=== PATIENT | male | born 1960 | race Caucasian/White ===

== ENCOUNTER 2020-09-10 17:09 | Emergency (ER) | payer OTHER ==
[~2020-09-10] VITALS: Ht 172.7 cm; Wt 68.2 kg
[2020-09-10 17:21] VITALS: TEMP 97.7
[2020-09-10 18:14] LABS: ARTERIAL BLD GAS O2 SATURATION 92.2 % (92-100); ARTERIAL BLD GAS TCO2 CT 25.5; ARTERIAL BLOOD GAS BASE EXCESS 0.6 (-2-2); ARTERIAL BLOOD GAS HCO3 24.4 meq/L (22-26); ARTERIAL BLOOD GAS PCO2 36.7 mmHg (35-45); ARTERIAL BLOOD GAS pH 7.44 (7.35-7.45)
[2020-09-10 18:34] LABS: HEMATOCRIT 42.8 % (42.0-52.0); HEMOGLOBIN 13.7 g/dl (13.5-18.0); MEAN CELL VOLUME 99 fl (80.0-100.0); MEAN CORPUSCULAR HEMOGLOBIN 32 pg (27.0-31.0); MEAN CORPUSCULAR HGB CONC 32 g/dl (33.0-37.0); MEAN PLATELET VOLUME 10.9 fl (7.4-10.4); PLATELET COUNT 203 K/mm3 (130-400); RED BLOOD COUNT 4.31 M/mm3 (4.20-5.60)
[2020-09-10 18:57] LABS: ALANINE AMINOTRANSFERASE 82 U/L (4-49); ALBUMIN 4.5 gm/dL (3.5-5.0); ALKALINE PHOSPHATASE 76 U/L (50-136); ANION GAP 9 mmol/L (7-16); AST,SGOT 229 U/L (15-37); BILIRUBIN,TOTAL 1.1 mg/dL (0.0-1.0); BLOOD UREA NITROGEN 24 mg/dL (9-20); C-REACTIVE PROTEIN 7.3 mg/dL (0.0-0.9); CALCIUM 7.9 mg/dL (8.4-10.2); CARBON DIOXIDE 31 mmol/L (22-30); CHLORIDE 99 mmol/L (98-107); CREATININE, serum 3.05 (0.66-1.25); GLUCOSE 106 mg/dL (74-106); LIPASE 32 U/L (23-300); POTASSIUM 4.2 mmol/L (3.4-5.0); SODIUM 138 mmol/L (137-145); TOTAL PROTEIN 7.7 gm/dL (6.4-8.2)
[2020-09-10 19:01] LABS: ANISOCYTOSIS 1+; BAND 7 % (0-10); LYMPHOCYTE 8 % (20.0-51.0); NEUTROPHILS 72 % (42.0-75.2); PLATELET ESTIMATE NORMAL (NORMAL)
[2020-09-10 19:07] LABS: TROPONIN-I < 0.012 ng/mL (0.000-0.035)
[2020-09-10 19:46] LABS: INR 1.1 (0.8-3.0)
[2020-09-10 19:49] LABS: PARTIAL THROMBOPLASTIN TIME 37.6 SECONDS (26.0-37.0)
[2020-09-11 00:10] VITALS: BP 110/56; PULSE 80
== END 2020-09-11 00:15 | disposition short-term general hospital (02) ==
LOC: COL.ER 17:09
PROVIDERS: Emergency Medicine
DX: J96.91 Respiratory failure, unspecified with hypoxia (principal); F17.290 Nicotine dependence, other tobacco product, uncomplicated; Z20.822 Contact with and (suspected) exposure to COVID-19; Z94.0 Kidney transplant status
CPT/HCPCS: J0456; J0696; J1650; J2543; J3370; J7050

== ENCOUNTER → 2021-05-08 | Outpatient (CLI) | payer OTHER | LOC: COL.PUL 07:39 | DX: Z02.71 Encounter for disability determination (principal); R06.02 Shortness of breath ==

== ENCOUNTER → 2021-07-01 | Outpatient (CLI) | payer OTHER | LOC: COL.PUL 08:00 | DX: Z02.71 Encounter for disability determination (principal); F17.210 Nicotine dependence, cigarettes, uncomplicated ==

== ENCOUNTER → 2021-10-16 | Outpatient (CLI) | payer OTHER | LOC: COL.RAD 09:40 | DX: Z02.71 Encounter for disability determination (principal); M17.12 Unilateral primary osteoarthritis, left knee; M11.262 Other chondrocalcinosis, left knee ==

== ENCOUNTER 2021-11-09 13:56 | Inpatient (IN) | payer MEDICAID ==
[2021-11-09] VITALS (262 sets, daily range): BP systolic 120; BP diastolic 64; PULSE 84; TEMP 97.9; O2SAT 61–100
[~2021-11-09] VITALS: Ht 172.7 cm; Wt 68.5 kg
[2021-11-09 14:52] LABS: HEMOGLOBIN 17.4 g/dl (13.5-18.0); MEAN CELL VOLUME 98 fl (80.0-100.0); MEAN CORPUSCULAR HEMOGLOBIN 31 pg (27-31); MEAN CORPUSCULAR HGB CONC 31 g/dl (33.0-37.0); MEAN PLATELET VOLUME 11.1 fl (7.4-10.4); PLATELET COUNT 161 K/mm3 (130-400); RED BLOOD COUNT 5.71 M/mm3 (4.20-5.60); REDCELL DISTRIBUTION WIDTH-CV 13.6 % (11.5-14.5)
[2021-11-09 14:59] LABS: HEMATOCRIT 55.8 % (42.0-52.0)
[2021-11-09 15:10] LABS: ALBUMIN 3.8 gm/dL (3.4-4.8); BILIRUBIN,TOTAL 0.8 mg/dL (0.2-1.2); C-REACTIVE PROTEIN 20.59 mg/dL (0.00-0.50); CALCIUM 8.2 mg/dL (8.4-10.2); CREATININE, serum 1.65 mg/dL (0.72-1.25); POTASSIUM 4.8 mmol/L (3.5-4.5); TOTAL PROTEIN 7.6 gm/dL (6.2-8.1)
[2021-11-09 15:18] LABS: TROPONIN-I 0.011 ng/mL (0.00-0.033)
[2021-11-09 16:10] LABS: LYMPHOCYTE 6 % (20.0-51.0); NEUTROPHILS 85 % (42.0-75.2)
[2021-11-09] MEDS ORDERED: MAG-G500 MG (17:13)
[2021-11-09] MEDS ORDERED: PROGRAF 1MG1 MG PO (17:14)
[2021-11-09] MEDS ORDERED: ASPIRIN E.C. 8181 MG PO (17:16)
[2021-11-09] MEDS ORDERED: MYCOPHENOLIC PO (17:16)
[2021-11-09] MEDS ORDERED: TUMS500 MG (17:17)
[2021-11-09] MEDS ORDERED: VITAMIN C500 MG PO (17:17)
[2021-11-09] MEDS ORDERED: UNITHROID PO (17:19)
[2021-11-09 19:21] LABS: COLLECTION METHOD CLEAN CATCH
--- NOTE | 2021-11-09 19:49 | NUR ---
DR. MCKEON AT BEDSIDE. NOTIFIED THAT MEDICATION RECONCILIATION WAS DONE.
[2021-11-09 19:58] LABS: MUCOUS Present (NOT PRESENT); PH 5 (5-8); SQUAMOUS EPITHELIAL None Seen /hpf (0-10); URINE APPEARANCE Clear (CLEAR/HAZY); URINE BACTERIA None Seen /hpf (NONE SEEN); URINE BILIRUBIN Negative (NEGATIVE); URINE BLOOD Negative (NEGATIVE); URINE COLOR Yellow (YELLOW); URINE GLUCOSE Negative (NEGATIVE); URINE KETONE 2+ (NEGATIVE); URINE LEUKOCYTE ESTERASE Negative (NEGATIVE); URINE NITRATE Negative (NEGATIVE); URINE PROTEIN(semi-quant) Negative (NEGATIVE); URINE UROBILINOGEN Negative (NEGATIVE)
--- NOTE | 2021-11-09 21:21 | NUR ---
Vancomycin Initial Dosing Pharmacy Note Ordering provider: Volodymyr Herrera MD Indication/duration: CAP X 5 days. Relevant comorbidities: Renal transplant. LABS: WBC = 14.6, SCr = 1.65 Recommendation: Will draw troughs and follow levels. Loading dose: 1.25 grams Maintenance dose: 1.25 grams every 24 hours Trough goal: 15-20 ug/mL
[2021-11-10] VITALS (788 sets, daily range): BP systolic 106–129; BP diastolic 56–71; PULSE 72–92; TEMP 97.8–98.8; O2SAT 44–100
[2021-11-10 04:38] LABS: HEMATOCRIT 48.5 % (42.0-52.0); MEAN CELL VOLUME 96 fl (80.0-100.0); MEAN CORPUSCULAR HEMOGLOBIN 31 pg (27-31); MEAN CORPUSCULAR HGB CONC 32 g/dl (33.0-37.0); MEAN PLATELET VOLUME 11.1 fl (7.4-10.4); PLATELET COUNT 153 K/mm3 (130-400); RED BLOOD COUNT 5.03 M/mm3 (4.20-5.60); REDCELL DISTRIBUTION WIDTH-CV 13.7 % (11.5-14.5)
[2021-11-10 04:45] LABS: HEMOGLOBIN 15.4 g/dl (13.5-18.0)
[2021-11-10 04:56] LABS: CALCIUM 6.9 mg/dL (8.4-10.2); CREATININE, serum 1.64 mg/dL (0.72-1.25); MAGNESIUM 1.7 mg/dL (1.6-2.6); POTASSIUM 4.5 mmol/L (3.5-4.5)
[2021-11-10 05:28] LABS: BAND 2 % (0-10); BASOPHIL 1 % (0-2); LYMPHOCYTE 9 % (20.0-51.0); METAMYELOCYTE 1 % (0-0); NEUTROPHILS 70 % (42.0-75.2); PLATELET ESTIMATE NORMAL (NORMAL)
[2021-11-10 05:29] LABS: HYPOCHROMIA 2+
--- NOTE | 2021-11-10 07:45 | NUR ---
BEDSIDE SHIFT REPORT RECEIVED FROM KAYLIE ROBERTS. PATIENT RESTING IN BED WITH EYES CLOSED. VSS. CALL LIGHT WITHIN REACH.
--- NOTE | 2021-11-10 08:30 | NUR ---
LE HERNANDEZ AT BEDSIDE. DISCUSSED PATIENT'S HOME MEDICATION REGIMEN AND PLAN OF CARE.
--- NOTE | 2021-11-10 09:57 | NUR ---
CONSULT FOR DR. BYRD ORDERED. DR. BYRD CURRENTLY AT BEDSIDE. PLAN OF CARE DISCUSSED.
--- NOTE | 2021-11-10 10:09 | NUR ---
DR. FLETCHER AT BEDSIDE. DISCUSSED PLAN OF CARE.
--- NOTE | 2021-11-10 12:12 | NUR ---
QUETA met with the pt who to complete intake. The pt reports he lives at home alone. The pt next of kin is his brother, Mina, [phone]. The pt is independent on all ADLS and uses a cane. The pt reports no PCP but has a name of one that he will be reaching out to, and [facility] The pt has no DPOA-HC and reports not intested in making one. DC: Home
--- NOTE | 2021-11-10 20:00 | NUR ---
PM ASSESSMENT COMPLETE. PT SITTING UP IN BED. DENIES PAIN, NO SOA. STATES FEELING MUCH BETTER THAN PREVIOUSLY. CURRENTLY ON AIRVO 15L/53%. INTERMITTENT COUGH, BUT NONPRODUCTIVE. PT ASKED UP GIVE SPUTUM SAMPLE IF ABLE, CONTAINER AT BEDSIDE. NO QUESTIONS OR CONCERNS. VSS. WILL CONTINUE TO MONITOR.
[2021-11-11] VITALS (556 sets, daily range): BP systolic 103–134; BP diastolic 59–71; PULSE 62–101; TEMP 98.4–98.9; O2SAT 84–99
[2021-11-11 06:50] LABS: BASO % 0.3 % (0.0-2.0); EOS # 0.1 K/mm3 (0.0-0.7); EOS % 1.1 % (0.0-4.0); GRAN # 9.1 K/mm3 (1.4-6.5); GRAN % 79.8 % (42.2-75.2); HEMATOCRIT 44.6 % (42.0-52.0); HEMOGLOBIN 14.6 g/dl (13.5-18.0); LYMPH # 0.8 K/mm3 (1.2-3.4); LYMPH % 6.9 % (20.0-51.0); MEAN CELL VOLUME 96 fl (80.0-100.0); MEAN CORPUSCULAR HEMOGLOBIN 31 pg (27-31); MEAN CORPUSCULAR HGB CONC 33 g/dl (33.0-37.0); MEAN PLATELET VOLUME 11.2 fl (7.4-10.4); MONO # 1.3 K/mm3 (0.1-0.6); MONO % 11.5 % (1.7-9.3); PLATELET COUNT 149 K/mm3 (130-400); RED BLOOD COUNT 4.66 M/mm3 (4.20-5.60); REDCELL DISTRIBUTION WIDTH-CV 13.8 % (11.5-14.5)
[2021-11-11 06:54] LABS: CALCIUM 6.1 mg/dL (8.4-10.2); CREATININE, serum 1.69 mg/dL (0.72-1.25); POTASSIUM 4.1 mmol/L (3.5-4.5)
--- NOTE | 2021-11-11 09:51 | NUR ---
SW attended clinical rounds. Plan is to titrate the patient's oxygen down and the team is awaiting his culture results. SW to continue to monitor.
--- NOTE | 2021-11-11 17:45 | NUR ---
Patient rested on and off today with sporadic episodes of non-productive coughing. Patient has gone from being at 15L/50% via Airvo to 4 LPM via high-flow nasal cannula. No other issues are present at this time and patient is resting comfortably in bed.
[2021-11-12] VITALS (690 sets, daily range): BP systolic 117–149; BP diastolic 63–84; PULSE 66–84; TEMP 97.8–98.3; O2SAT 84–99
--- NOTE | 2021-11-12 18:30 | NUR ---
Patient did well today and was able to wean off the nasal cannula; while on room air his SpO2 remained above 90%. Patient switched from IV antibiotics to PO and felt nauseous after his dose of Augmentin. Called Laurie the night hospitalist and got an order for PO Zofran PRN. Patient was able to eat some of his dinner and felt better without receiving a dose of Zofran. Patient has no IV access at this time; Dr. Uriostegui and Dr. Vasques are aware of this and PO antibiotics were ordered. Patient's IV site started leaking and appeared red around the insertion site; patient had no complaints of pain and redness seemed to get better throughout the day. Patient currently resting in bed with no complaints at this time.
--- NOTE | 2021-11-12 20:08 | NUR ---
PM ASSESSMENT COMPLETE. PT SITTING UP IN BED, DENIES PAIN. STILL HAS COUGHING SPELLS BUT LESS FREQUENT, REMAINS NONPRODUCTIVE. PT DOES NOT CURRENTLY HAVE IV ACCESS, HAS BEEN OK'D BY CARE TEAM, MEDS SWITCHED TO PO. LEFT WRIST AND FOREARM RED, WARM, AND TENDER FROM PHLEBITIS. WILL CONTINUE TO MONITOR. REPORTS NO QUESTIONS OR CONCERNS. MAIN GOAL TO REST TONIGHT, HAS BEEN UNABLE TO GET ANY RESTFUL SLEEP. PLACED BACK ON OXYGEN VIA NC AT 1L PULSE OX WAS READING 86-88%.
[2021-11-13] VITALS (340 sets, daily range): BP systolic 115–135; BP diastolic 63–92; PULSE 71–95; TEMP 97.7–98.8; O2SAT 86–98
--- NOTE | 2021-11-13 08:00 | NUR ---
PATIENT DOING WELL THIS MORNING. HE IS UP INDEPENDENT IN THE ROOM AND IS ON 2L O2 VIA NASAL CANNULA. PATIENT HAS NO COMPLAINTS OR CONCERNS. HE DENIES PAIN OR DISCOMFORT. COARSENESS IS NOTED UPON EXAM AND CHEST XR HAS ALREADY BEEN ORDERED. PATIENT ENCOURAGED TO CALL IF ANY HELP IS NEEDED. HE VERBALIZES UNDERSTANDING.
--- NOTE | 2021-11-13 09:54 | NUR ---
SW and SW student met the patient to follow up. The patient confirms that he lives with his brother in [place] and plans on returning back home with his brother upon discharge. He had no concerns for SW. The patient remains on 2 liters of oxygen. SW to continue to monitor.
--- NOTE | 2021-11-13 13:30 | NUR ---
REPORT CALLED TO KAYLIE SNIDER ON MEDICAL FLOOR. PATIENT THEN TRANSFERRED TO ROOM 353 WITH NO ISSUE. HE REMAINS ON 2L O2.
--- NOTE | 2021-11-13 14:02 | NUR ---
PATIENT ARRIVED TO UNIT VIA CRITICAL CARE NURSE ESCORT VIA . STABLE CONDITION AT THIS TIME. ABLE TO AMBULATE ON OWN WITH NO ISSUES. CURRENTLY NOT USING OXYGEN AND NOT C/O SOA. NO SKIN BREAKDOWN OBSERVED. PATIENT IS PLEASANT AND COOPERATIVE.
--- NOTE | 2021-11-13 21:52 | NUR ---
Patient assessed around 2004. Alert and oriented, and able to make needs known. Denies having pain and discomfort. On oxygen at 2 L/min via NC. Repots SOB and dyspnea with exertion. LS coarse crackles and expiratory wheezes. HRR. BSAx4. Abdomen soft and non-tender. No edema. Voices no questions, needs, or concerns at this time. In bed with call light within reach.
[2021-11-14 04:19] VITALS: BP 123/67; PULSE 77; TEMP 97.9
--- NOTE | 2021-11-14 06:02 | NUR ---
Patient given PRN cough medication during the night as requested. Voices no further questions, needs, or concerns at this time. Continues on oxygen at 2 L/min via NC. In bed with call light within reach.
[2021-11-14 07:50] VITALS: BP 141/74; PULSE 81; TEMP 98.1
--- NOTE | 2021-11-14 10:59 | NUR ---
PATIENT DOING WELL TODAY. COMPLAINING OF MILD WHEEZING THIS MORNING, BREATH SOUNDS AUSCULTATED WITH BILATERAL LOWER LOBE CRACKLES HEARD. PATIENT CURRENTLY ON ANTIBIOTIC THERAPY FOR PNUEMONIA. NO LONGER REQUIRES OXYGEN AT THIS TIME. RESP THERAPY PROVIDED ORDERED TREATMENTS WHICH MARIEL PATIENT RELIEF. RESTING IN BED AT THIS TIME. APPETITE IS GOOD. AMBULATES ON OWN, ENCOURAGED TO CALL FOR ASSIST IF NEEDED.
[2021-11-14 11:30] VITALS: BP 116/67; PULSE 83; TEMP 98.3
[2021-11-14 16:25] VITALS: BP 134/79; PULSE 79; TEMP 98.2
[2021-11-14 19:36] VITALS: BP 120/65; PULSE 81; TEMP 98.5
--- NOTE | 2021-11-14 20:03 | NUR ---
Txs given via mouthpiece, Duoneb first followed by Perforomist/Pulmicort. Tolerated well.
--- NOTE | 2021-11-14 20:46 | NUR ---
Patient assessed around 1950. Alert and oriented, and able to make needs known. Denies having pain and discomfort at this time. LS CTA in upper lobes, coarse in lower. Continues to have cough, unable to produce sputum. On oxygen at 2 L/min via NC. Voices no questions, needs, or concerns at this time. In bed with call light within reach.
[2021-11-15 00:37] VITALS: BP 118/57; PULSE 85; TEMP 97.6
[2021-11-15 04:13] VITALS: BP 127/79; PULSE 80; TEMP 97.7
--- NOTE | 2021-11-15 05:07 | NUR ---
Patient has been in bed with call light within reach. Continues on oxygen at 2 L/min via NC. Voices no quesitons, needs, or concerns at this time.
[2021-11-15 06:55] LABS: HEMATOCRIT 47.9 % (42.0-52.0); HEMOGLOBIN 15.1 g/dl (13.5-18.0); MEAN CELL VOLUME 96 fl (80.0-100.0); MEAN CORPUSCULAR HEMOGLOBIN 30 pg (27-31); MEAN CORPUSCULAR HGB CONC 32 g/dl (33.0-37.0); MEAN PLATELET VOLUME 11.2 fl (7.4-10.4); PLATELET COUNT 280 K/mm3 (130-400); RED BLOOD COUNT 5.01 M/mm3 (4.20-5.60); REDCELL DISTRIBUTION WIDTH-CV 13.6 % (11.5-14.5)
[2021-11-15 07:17] LABS: CALCIUM 7.2 mg/dL (8.4-10.2); CREATININE, serum 1.61 mg/dL (0.72-1.25); POTASSIUM 4.2 mmol/L (3.5-4.5)
[2021-11-15 08:15] LABS: EOSINOPHIL 1 % (0-4); HYPOCHROMIA 1+; LYMPHOCYTE 15 % (20.0-51.0); MYELOCYTE 1 % (0-0); NEUTROPHILS 77 % (42.0-75.2); PLATELET ESTIMATE NORMAL (NORMAL)
[2021-11-15 08:19] VITALS: BP 116/59; PULSE 95; TEMP 97.7
--- NOTE | 2021-11-15 08:40 | NUR ---
MORNING VITAL SIGN CHECK REVEALED PATIENT O2 LEVELS TO BE RUNNING AT 88-90% ON 2L VIA NC.
--- NOTE | 2021-11-15 08:50 | NUR ---
SPOKE WITH DR AU PATIENT [employer]. THEY WILL FAX OVER LAST BMP RESULTS. BMP DONE 06/13/21 RESULTED WITH CREAT OF 1.6 AND EGFR OF 44
--- NOTE | 2021-11-15 11:39 | NUR ---
SW spoke with patient about the need to home oxygen upon dc. Patient would like to be established with [facility] for his o2. Patient reports that his brother is able to apple picker his oxygen tanks prior to picking him up. Notified him that the angency will call him to set up a time to set up his home concentrator.Clinical information and order faxed to [facility]. Discharge plan: Home;waiting on his brother to apple picker home oxygen.
[2021-11-15 11:40] VITALS: BP 120/63; PULSE 88; TEMP 97.9
[2021-11-15] MEDS ORDERED: AMOXICILLIN 8751 TAB PO (11:55)
[2021-11-15] MEDS ORDERED: DOXYCYCLINE 10100 MG PO (11:55)
[2021-11-15] MEDS ORDERED: PREDNISONE20 MG PO (11:57)
[2021-11-15] MEDS ORDERED: TESSALON P100 MG/CAP PO (12:10)
[2021-11-15] MEDS ORDERED: OXYGEN (12:10)
--- NOTE | 2021-11-15 12:55 | NUR ---
Spoke with the patient on who he would like to establish a PCP with. Patient reports that a friend of his has referred him to [facility]. Patient does not have a preference on male or female. wine and spirits clerk Cheryl notified and will call to set up follow up appointment.
== END 2021-11-15 13:57 | disposition home or self-care (01) | DRG 193 ==
LOC: COL.ER 13:56 → MEDICAL 16:47 → ICU 16:47 → MEDICAL 11-13 14:05
PROVIDERS: Emergency Medicine; Internal Medicine; Internal Medicine Pulmonary Disease; Physician Assistant; ADMIT Internal Medicine
PROC: 5A0945A Assistance with Respiratory Ventilation, 24-96 Consecutive Hours, High Flow/Velocity Cannula (ICD-10-PCS; principal; 2021-11-09)
DX: J18.9 Pneumonia, unspecified organism (principal); J96.01 Acute respiratory failure with hypoxia; J44.0 Chronic obstructive pulmonary disease with (acute) lower respiratory infection; Z94.83 Pancreas transplant status; Z94.0 Kidney transplant status; F17.210 Nicotine dependence, cigarettes, uncomplicated; E89.0 Postprocedural hypothyroidism; E83.42 Hypomagnesemia; N18.9 Chronic kidney disease, unspecified; E11.22 Type 2 diabetes mellitus with diabetic chronic kidney disease; Z20.822 Contact with and (suspected) exposure to COVID-19; Z85.850 Personal history of malignant neoplasm of thyroid; Z79.82 Long term (current) use of aspirin
CPT/HCPCS: 99223-AI; 99233-AI; 99239; J1644; J2543; J3370; J7030; J7050; J7507; J7512; Q9967

== ENCOUNTER 2021-11-27 08:33 | Emergency (ER) | payer MEDICAID ==
[~2021-11-27] VITALS: Ht 172.7 cm; Wt 65.0 kg
[~2021-11-27 08:33] MED LIST: AMOXICILLIN 8751 TAB PO; ASPIRIN E.C. 8181 MG PO; DOXYCYCLINE 10100 MG PO; MAG-G500 MG; MYCOPHENOLIC PO; OXYGEN; PREDNISONE20 MG PO; PROGRAF 1MG1 MG PO; TESSALON P100 MG/CAP PO; TUMS500 MG; UNITHROID PO; VITAMIN C500 MG PO
[2021-11-27 09:55] LABS: BASO % 0.3 % (0.0-2.0); EOS # 0.1 K/mm3 (0.0-0.7); EOS % 0.9 % (0.0-4.0); GRAN # 5.7 K/mm3 (1.4-6.5); LYMPH # 0.2 K/mm3 (1.2-3.4); LYMPH % 2.3 % (20.0-51.0); MEAN CELL VOLUME 96 fl (80.0-100.0); MEAN CORPUSCULAR HGB CONC 32 g/dl (33.0-37.0); MEAN PLATELET VOLUME 11.5 fl (7.4-10.4); MONO # 0.6 K/mm3 (0.1-0.6); MONO % 8.9 % (1.7-9.3); PLATELET COUNT 222 K/mm3 (130-400); RED BLOOD COUNT 5.91 M/mm3 (4.20-5.60); REDCELL DISTRIBUTION WIDTH-CV 14.2 % (11.5-14.5)
[2021-11-27 09:56] LABS: HEMATOCRIT 56.8 % (42.0-52.0); HEMOGLOBIN 18.1 g/dl (13.5-18.0); MEAN CORPUSCULAR HEMOGLOBIN 31 pg (27-31)
[2021-11-27 10:20] LABS: ALBUMIN 3.3 gm/dL (3.4-4.8); BILIRUBIN,TOTAL 0.6 mg/dL (0.2-1.2); C-REACTIVE PROTEIN 12.39 mg/dL (0.00-0.50); CALCIUM 7.4 mg/dL (8.4-10.2); CREATININE, serum 1.96 mg/dL (0.72-1.25); POTASSIUM 4.9 mmol/L (3.5-4.5); TOTAL PROTEIN 6.8 gm/dL (6.2-8.1)
[2021-11-27 11:35] LABS: COLLECTION METHOD CLEAN CATCH
[2021-11-27 11:44] LABS: MUCOUS Present (NOT PRESENT); PH 5 (5-8); SQUAMOUS EPITHELIAL None Seen /hpf (0-10); URINE APPEARANCE Clear (CLEAR/HAZY); URINE BACTERIA None Seen /hpf (NONE SEEN); URINE BILIRUBIN Negative (NEGATIVE); URINE BLOOD Negative (NEGATIVE); URINE COLOR Yellow (YELLOW); URINE GLUCOSE Negative (NEGATIVE); URINE KETONE Trace (NEGATIVE); URINE LEUKOCYTE ESTERASE Negative (NEGATIVE); URINE NITRATE Negative (NEGATIVE); URINE PROTEIN(semi-quant) Negative (NEGATIVE); URINE RBC 0-2 /hpf (0-2); URINE UROBILINOGEN Negative (NEGATIVE)
[2021-11-27 14:51] VITALS: BP 108/66; PULSE 80; TEMP 98
== END 2021-11-27 14:51 | disposition home or self-care (01) ==
LOC: COL.ER 08:33
PROVIDERS: Family Medicine
DX: E86.0 Dehydration (principal); F17.200 Nicotine dependence, unspecified, uncomplicated
CPT/HCPCS: J7120